=== PATIENT | female | born 1985 | race Asian ===

== ENCOUNTER 2018-07-27 11:14 | Inpatient (IN) | payer SELFPAY ==
[2018-07-22 13:10] VITALS: BP 134/86; PULSE 76; RESP 16; TEMP 37.3; O2SAT 97; BMI 23.3
[2018-07-22 13:47] LABS: Hemoglobin 13.2 g/dl (12.0-15.0); Mean Corp Hgb Conc 33.8 g/gl (32-36); Mean Corpuscular Hgb 31.2 pg (27.0-32.0); Mean Corpuscular Volume 92.2 fL (81-99); Mean Platelet Vol. 9.4 fl (6.2-12.0); Platelet Count 278 K/mm3 (150-450); RBC Distribution Width CV 11.7 % (11.6-14.6); Red Blood Count 4.23 M/mm3 (4.2-5.4); White Blood Count 6.7 K/mm3 (4.4-11.0)
[2018-07-22 13:48] LABS: Scan Indicated on CBC? Y/N NO
[2018-07-27] VITALS (12 sets, daily range): BP systolic 90–134; BP diastolic 53–86; PULSE 46–76; RESP 14–18; TEMP 36.6–37; O2SAT 96–100; BMI 23.3; BMI 23.5
[2018-07-27 11:41] LABS: Internal QC Validated? YES +Cl - CLEAR BKGD
[2018-07-27 11:45] LABS: Pregnancy, Urine Negative Negative
--- NOTE | 2018-07-27 13:00 | CYST_PTH ---
PATIENT: EULALIA DALE LOC: [facility] U#:[id number] AGE/SX: 33/F ROOM: WA322 RE07/27/[address]: Dr. Cindy Doshi MD : 1985 BED: 1 DIS: 07/28/2018 SPEC #: [id number] RECD: 07/28/18 09:24 STATUS: ALDEN REJimena #: [id number] EMILY: 07/27/18 13:[address]: Cindy Doshi DEPT: SURGICAL PATHOLOGY RECD BY: Wisam Carbone ENTERED: 07/28/18 10:08 SP TYPE: Cyst OTHR DR: Karen Primary Care Phys Tissues: A - CYST B - Fibrous tissue Procedures: Surgery Specimen Level IV Surgery Specimen Level V HEADER OPERATION: Laparotomy, myomectomy, left ovarian cystectomy PRE-OP DIAGNOSIS: Fibroid, complex ovarian cyst TISSUE SUBMITTED: A ? Dermoid cyst, left ovary, B - Fibroid MICROSCOPIC DIAGNOSIS A. Left ovary, oophorectomy: Mature cystic teratoma (dermoid cyst). B. Fibroid, excision: Leiomyoma. AM:drake 07/29/18 MICROSCOPIC DESCRIPTION Slides are reviewed. GROSS DESCRIPTION A - Received in fixative is one container labeled with the patient's name and designated left ovary. The specimen consists of a kumar-spivey cystic ovary measuring 5.6 x 4 x 3 cm. Serial sections reveal granular cut surfaces in which there are hair, sebum-like material and focal gritty tissue. Microfilm Machine Operator sections are submitted in four cassettes. B - Received in fixative is one container labeled with the patient's name and designated fibroid. The specimen consists of firm, rubbery soft tissue that is white-kumar in color measuring 7.5 x 7 x 5.5 cm and weighing 151 gm. Sections reveal homogenous cut surfaces without areas of cyst formation, necrosis or softening. Microfilm Machine Operator sections are submitted in four cassettes. / AM:drake 07/28/18 TC:1 CPT: 12954, 84578
[2018-07-27] MEDS: Vasopressin 20 UNITS/ML Vial (14:25)
--- NOTE | 2018-07-27 15:22 | PCM.OPRPT ---
Problem List (1) Uterine fibroid Status: Acute Qualifiers: Comment: declines hysterectomy, plan laparotomy and myomectomy (2) Ovarian cyst Status: Acute Qualifiers: Comment: plan ovarian cystectomy Report of Operation Date of Procedure: 07/27/18 Pre-Operative Diagnosis: uterine fibroids left ovarian complex cyst Post-Operative Diagnosis: Uterine fibroid and left ovarian dermoid cyst Surgery/Procedure Performed:: Laparotomy left ovarian cystectomy myomectomy Description of Surgical Findings:: Left ovarian dermoid cyst large fundal fibroid java security architect: Misti Chen Type of Anesthesia:: General Special Medications: Cefoxitin Interceed Specimen's removed: Fibroid and dermoid cyst Drains: Funez Estimated Blood Loss (mL): 100 cc Fluids Replaced: Crystalloid Description of Procedure: Patient was placed under general anesthesia was prepped and draped in the normal sterile fashion in the dorsal supine position. Midline incision was made through the previous vertical skin incision. Incision was carried down to the layer of the fascia and the rectus bellies dissected off sharply and bluntly bilaterally. Peritoneum entered digitally incision stretched laterally. Ovary and uterus were elevated and the left ovary was noted to contain a dermoid cyst which an ovarian cystectomy was performed removing the cyst with rupture of contents noted containing hair and sebaceous material. The remaining ovary was noted to be within normal limits and hemostatic. The right ovary was noted to be within normal limits. Small amount of omental to a very scar tissue was taken down with the Bovie. The uterus was then visualized and dilute vasopressin was injected across the top of the fibroid. A right to left uterine incision was made across the posterior fundal portion of the uterus and the fibroid was dissected out without difficulty. It did penetrate the right endometrium which was reapproximated with 3-0 Vicryl in multiple layers to reapproximate the endometrium myometrium in several layers. The serosa was then closed with a baseball stitch of 2-0 Vicryl. Hemostasis was noted and a piece of Interceed was placed over the area. Uterus was returned to the abdomen and excellent hemostasis was noted. Peritoneum was closed with 3 oh and fascia closed with #1 start effects. Subcutaneous tissue was reapproximated with 4-0 Monocryl after excising the old skin scar. 4-0 Monocryl was used to close subcuticular and Steri-Strips and Mepilex were applied. Grafts/Implants Used: None - Complications None - Admit VTE Documentation VTE Present on Admission: No VTE Mechan Device Prophylaxis: SCD's
[2018-07-27] MEDS: Lactated Ringers 1,000 ML 125 ML IV (18:52)
[2018-07-27] MEDS: Ketorolac 30 MG/ML Syringe IV (20:33)
[2018-07-28 03:00] VITALS: BP 115/65; PULSE 72; RESP 16; TEMP 36.4; O2SAT 99
[2018-07-28] MEDS: Ketorolac 30 MG/ML Syringe IV (03:05)
[2018-07-28 06:05] LABS: Hematocrit 34.9 % (37-47); Hemoglobin 11.7 g/dl (12.0-15.0); Mean Corp Hgb Conc 33.5 g/gl (32-36); Mean Corpuscular Hgb 31.3 pg (27.0-32.0); Mean Corpuscular Volume 93.3 fL (81-99); Mean Platelet Vol. 9.6 fl (6.2-12.0); Platelet Count 258 K/mm3 (150-450); RBC Distribution Width CV 11.7 % (11.6-14.6); RBC Distribution Width SD 38.8 fl (35.1-43.9); Red Blood Count 3.74 M/mm3 (4.2-5.4); White Blood Count 17.4 K/mm3 (4.4-11.0)
[2018-07-28 06:17] LABS: Scan Indicated on CBC? Y/N NO
[2018-07-28] MEDS: oxyCODONE 5 MG Tablet PO (06:24)
[2018-07-28 07:49] VITALS: BP 102/57; PULSE 76; RESP 16; TEMP 37.1; O2SAT 97
[2018-07-28 07:52] VITALS: O2SAT 95
[2018-07-28] MEDS: Enoxaparin 40 MG/0.4 ML Syringe SC (07:57)
[2018-07-28] MEDS: Ketorolac 10 MG Tablet PO ×2 (10:46→15:18)
--- NOTE | 2018-07-28 11:13 | CASEMGMT ---
Social Work Note SW spoke with Ashley with [facility] and Ashley states that Ro in [facility] saw pt and yesterday in regards to self-pay status and provided HCAP application to pt. Pt to fill out HCAP application and provide to [facility]. Ashley Bowie CHEMICAL TESTER, HEADHUNTER
--- NOTE | 2018-07-28 13:56 | CASEMGMT ---
RN CM assessment completed. See Link. DC PLAN: Home. -[facility]. [facility]. is able to provide transportation for f/u visit to surgeon. Troy MONSONN RN ACM
[2018-07-28 15:08] VITALS: BP 108/57; PULSE 79; RESP 16; TEMP 37.1; O2SAT 97
--- NOTE | 2018-07-28 18:24 | PCM.DC.AHY ---
Discharge Diet: No Restrictions Discharge Activity: Return to Normal Activity, May Not Drive - while taking narcotic pain medications. May resume sexual activity in: 6-8 weeks Call your doctor if your incision/area has: Continuous Slow Oozing, Sudden Increased Bleeding, Increased Pain/ Swelling, Increased Redness, Foul Smelling Discharge Call your doctor if you observe: Fever of 101 or Higher Allergies/Adverse Reactions: Allergies No Known Allergies Allergy (Verified 06/17/18 08:55) Medications to take at Discharge No Known/Unobtainable [No Known Home Medications] 03/25/15 Primary Care Physician: Care Physician,No Primary [Primary Care Provider] - Test Results: Test results from this visit will be discussed in further detail at your follow-up appointment, if applicable. Please Follow Up With: Cindy Doshi MD - [phone] When: in 2 weeks
== END 2018-07-28 18:25 | disposition home or self-care (01) | DRG 743 ==
LOC: ACINP 11:16 → MS3 12:01
PROVIDERS: Admitting Provider Obstetrics & Gynecology; Visit Provider Obstetrics & Gynecology
PROC: 0UB90ZZ Excision of Uterus, Open Approach (ICD-10-PCS; CPT 49000; principal; 2018-07-27 12:45)
DX: D25.9 Leiomyoma of uterus, unspecified (principal); D27.1 Benign neoplasm of left ovary
CPT/HCPCS: 36415; 81025; 85027; 86850; 86900; 88304; 88305; 88307; J7120; J2405

== ENCOUNTER 2022-03-01 20:45 | Emergency (ER) | payer OTHER, SELFPAY ==
[2022-03-01 20:47] VITALS: BP 117/101; PULSE 80; RESP 16; TEMP 36.3; O2SAT 99; BMI 23.0
--- NOTE | 2022-03-01 21:27 | CT_ITS ---
EXAM: CT ABDOMEN AND PELVIS WITHOUT INTRAVENOUS CONTRAST CLINICAL INDICATION: suprapubic pain TECHNIQUE: Helically acquired images were obtained of the abdomen and pelvis without intravenous contrast. This CT exam was performed using one or more of the following dose reduction techniques: automated exposure control, adjustment of the mA and/or kV according to patient size, and/or use of iterative reconstruction technique. This report was created using smartclip report generation technology. RADIATION DOSAGE (If Required by State): CTDIvol = (7.29) mGy, DLP = (357.14) mGycm. COMPARISON: None. FINDINGS: LOWER THORAX: Unremarkable. Lung bases are clear. No cardiomegaly. No significant pericardial effusion. ABDOMEN: LIVER: Unremarkable. Homogeneous. GALLBLADDER AND BILE DUCTS: Unremarkable. No calcified gallstones. No gallbladder distention or wall edema. No intra- or extrahepatic biliary ductal dilation. PANCREAS: Unremarkable. No focal cystic mass. SPLEEN: Unremarkable. Normal size without focal cystic or solid mass. ADRENALS: Unremarkable. No nodules. KIDNEYS AND URETERS: Unremarkable. Normal renal size and position. No hydronephrosis. STOMACH AND BOWEL: Unremarkable. No stomach or bowel distention. No focal inflammatory change. PELVIS: APPENDIX: Normal appendix. BLADDER: Unremarkable. REPRODUCTIVE: The uterus is enlarged measuring 13 x 6 x 9 cm. ABDOMEN and PELVIS: INTRAPERITONEAL SPACE: Unremarkable. No ascites or other fluid collection. No free air. BONES/JOINTS: Unremarkable. No suspicious lytic or blastic abnormality. SOFT TISSUES: Unremarkable. No discrete abdominal or pelvic wall hernia. VASCULATURE: Unremarkable. Abdominal aorta is non-dilated. LYMPH NODES: Unremarkable. No enlarged lymph nodes. CT/Abdomen/Pelvis without Cont IMPRESSION: 1. The uterus is enlarged measuring 13 x 6 x 9 cm. 2. No acute intra-abdominal abnormality. Electronically Signed: Ivan Degroot MD at 22:21 EDT ,
[2022-03-01 21:36] LABS: Bacteria 0 SEEN /hpf (None Seen); Mucous, Urine 0 SEEN /hpf (<or=2+); Red Blood Cells-Urine 0 SEEN /hpf (0-5); Squamous Epithelial Cells - UA 0 SEEN /hpf (5-10); White Blood Cells 0 SEEN /hpf (0-5)
[2022-03-01 21:37] LABS: Absolute Lymphocyte Count 1.98 X10^3/uL (0.83-4.51); Absolute Neutrophil Count 5.4 X10^3/uL (2.0-7.7); Basophil# 0.04 X10^3/uL; Basophil% 0.5 % (0-1); Eosinophil# 0.13 X10^3/uL; Eosinophils% 1.6 % (0-5); Hematocrit 37.9 % (37-47); Hemoglobin 12.6 g/dL (12.0-15.0); Lymphocyte # 1.98 X10^3/ul (0.83-4.51); Lymphocyte % 24.3 % (19-41); Mean Corp Hgb Conc 33.2 g/dL (32-36); Mean Corpuscular Hgb 30.8 pg (27.0-32.0); Mean Corpuscular Volume 92.7 fL (81-99); Mean Platelet Vol. 9.3 fl (6.2-12.0); Monocyte# 0.57 X10^3/uL; NRBC Flagged by Analyzer 0 % (0-5); Neutrophil % 66.2 % (47-70); Platelet Count 302 K/mm3 (150-450); RBC Distribution Width CV 11.9 % (11.6-14.6); RBC Distribution Width SD 40.6 fl (35.1-43.9); Red Blood Count 4.09 M/mm3 (4.2-5.4); White Blood Count 8.2 K/mm3 (4.4-11.0)
[2022-03-01 21:38] LABS: Color, Urine Yellow (Yellow); Glucose, Dipstick Normal (Normal); Ketone-Dipstick Negative (Negative); Leukocyte Esterase-Dipstick Negative /ul (Negative); Nitrite-Dipstick Negative (Negative); Occult Blood-Urine Negative /ul (Negative); Protein-Dipstick Negative (Negative); Urine Bilirubin Dipstick Negative (Negative); Urine Clarity Clear (Clear); Urine Urobilinogen Normal (Normal)
[2022-03-01 21:48] LABS: Internal QC Validated? YES +Cl - CLEAR BKGD; Pregnancy, Serum, hCG Quali. NEGATIVE Negative
[2022-03-01 21:49] LABS: Anion Gap 3 (5-15); BUN 15 mg/dL (7-18); BUN/Creat Ratio 24.2 RATIO (10-20); Calcium,Total 8.6 mg/dL (8.5-10.1); Chloride 109 mmol/L (98-107); Creatinine, Serum 0.62 mg/dL (0.55-1.02); EST Glomerular Filtration Rate 116 mL/min (>60); Est Glom Filt Rate - Afr Amer 140 mL/min (>60); Estimated Creatinine Clearance 104.76 ml/min; Glucose 93 mg/dL (74-106); Potassium 3.9 mmol/L (3.5-5.1); Sodium Level 139 mmol/L (136-145)
--- NOTE | 2022-03-01 21:57 | EDS_ITS ---
HPI <Dr. Radha Lazaro MD - Last Filed: 03/01/22 23:48> History of Present Illness Chief Complaint: Abd Pain <ZACH HARTMANN - Last Filed: 03/01/22 23:35> History of Present Illness Informant: patient Onset/Context/Timing Onset: Today (at 1900) Current Severity: 5/10 Maximum Severity: 8/10 Worsened by: movement Narrative Narrative: Patient presents secondary to lower abdominal pain that began tonight at 1900. Patient has language barrier but describes the pain as pain you would have with your period. Patient states she felt fine earlier today. Patient states she has had normal intake today as well has normal bowel movements and urination. Patient denies radiation of pain. Patient states pain is constant and worse with movement, but denies any recent strain or other injury. Patient did not take any medications [id number]. COUNTS INCLUDE 234 BEDS AT THE [facility] <Dr. Radha Lazaro MD - Last Filed: 03/01/22 23:48> COUNTS INCLUDE 234 BEDS AT THE [facility] Medical History (Updated 03/01/22 @ 23:29 by ZACH HARTMANN) [place] Home Medications NK 08/12/18 [History Last Taken Unknown] Allergy/AdvReac Type Severity Reaction Status Date / Time No Known Allergies Allergy Verified 03/01/22 20:50 Family History Mother Myocardial infarction Surgical History Delivery with history of History of laparotomy Social History Smoking Status: Never smoker alcohol intake: never substance use type: does not use caffeine: Yes Type: coffee and tea Number of servings: 2 what type of physical activity do you participate in: none seatbelt use: always do you feel safe at home: Yes additional social history: Reuben Stewart (Nitin Charles) <ZACH HARTMANN - Last Filed: 03/01/22 23:35> ROS ED Constitutional Constitutional ED: Denies chills, fever(s) or sweats ENT ENT ED: Denies sore throat Cardiovascular Cardiovascular: Denies chest pain Respiratory/Chest Respiratory/Chest: Denies cough or dyspnea Gastrointestinal Gastrointestinal: Reports abdominal pain; Denies constipation, diarrhea, nausea or vomiting Genitourinary Genitourinary ED: Reports LMP (females 10-50) Details: Comment: (02/18/22); Denies dysuria or hematuria Musculoskeletal Musculoskeletal: Denies myalgias Integumentary Denies rash Neurologic Neurologic: Denies headache(s) or weakness Psychiatric Psychiatric: Denies depression EXAM <Dr. Radha Lazaro MD - Last Filed: 03/01/22 23:48> Physical Exam Const Vital Signs: 03/01/22 20:47 Temperature 97.3 F L Temperature Source Temporal Pulse Rate 80 Respiratory Rate 16 Blood Pressure 117/101 H Blood Pressure Mean 106 Pulse Ox 99 Oxygen Delivery Method Room Air <ZACH HARTMANN - Last Filed: 03/01/22 23:35> Physical Exam Const Vital Signs: 03/01/22 20:47 Temperature 97.3 F L Temperature Source Temporal Pulse Rate 80 Respiratory Rate 16 Blood Pressure 117/101 H Blood Pressure Mean 106 Pulse Ox 99 Oxygen Delivery Method Room Air Positive well nourished and well developed General Appearance ED: well developed HEENT Reports moist mucous membranes Negative for trauma or tenderness Eyes PERRL and EOMs intact bilaterally Neck supple Chest Wall inspection of chest normal and palpation of chest normal Resp normal respiratory effort and clear to auscultation bilaterally Cardio regular rate, regular rhythm and no murmurs GI normal to inspection, nondistended, normoactive bowel sounds Palpation: soft Narrative: Suprapubic tenderness. Back/Spine no CVA tenderness Extremity normal to inspection General Extremety ED: Negative for edema General Extremity: Negative for edema Neuro oriented x3 and CN's II-XII intact bilaterally Sensorium / Orientation: alert Psych mental status grossly normal Skin no rashes or lesions noted MDM <Dr. Radha Lazaro MD - Last Filed: 03/01/22 23:48> [facility] Lab Data Labs: Laboratory Results - last 24 hr 03/01/22 03/01/22 03/01/22 20:59 20:59 20:59 WBC 8.2 RBC 4.09 L Hgb 12.6 Hct 37.9 MCV 92.7 MCH 30.8 MCHC 33.2 RDW Std Deviation 40.6 RDW Coeff of Erin 11.9 Plt Count 302 MPV 9.3 Immature Gran % (Auto) 0.400 Neut % (Auto) 66.2 Lymph % (Auto) 24.3 [place] % (Auto) 7.0 Eos % (Auto) 1.6 Baso % (Auto) 0.5 Absolute Neuts (auto) 5.4 Absolute Lymphs (auto) 1.98 Nucleated RBC % 0 Sodium 139 Potassium 3.9 Chloride 109 H Carbon Dioxide 27.0 Anion Gap 3 L BUN 15 Creatinine 0.62 Estim Creat Clear Calc 104.76 Est GFR (MDRD) Af Amer 140 Est GFR (MDRD) Non-Af 116 BUN/Creatinine Ratio 24.2 H Glucose 93 Calcium 8.6 Serum , Qual NEGATIVE Urine Color Urine Clarity Urine pH Ur Specific [place] Urine Protein Urine Glucose (UA) Urine Ketones Urine Occult Blood Urine Nitrite Urine Bilirubin Urine Urobilinogen Ur Leukocyte Esterase Urine RBC Urine WBC Ur Squamous Epith Cells Urine Bacteria Urine Mucus 03/01/22 21:13 WBC RBC Hgb Hct MCV MCH MCHC RDW Std Deviation RDW Coeff of Erin Plt Count MPV Immature Gran % (Auto) Neut % (Auto) Lymph % (Auto) [place] % (Auto) Eos % (Auto) Baso % (Auto) Absolute Neuts (auto) Absolute Lymphs (auto) Nucleated RBC % Sodium Potassium Chloride Carbon Dioxide Anion Gap BUN Creatinine Estim Creat Clear Calc Est GFR (MDRD) Af Amer Est GFR (MDRD) Non-Af BUN/Creatinine Ratio Glucose Calcium Serum , Qual Urine Color Yellow Urine Clarity Clear Urine pH 7.0 Ur Specific [place] 1.010 Urine Protein Negative Urine Glucose (UA) Normal Urine Ketones Negative Urine Occult Blood Negative Urine Nitrite Negative Urine Bilirubin Negative Urine Urobilinogen Normal Ur Leukocyte Esterase Negative Urine RBC 0 SEEN Urine WBC 0 SEEN Ur Squamous Epith Cells 0 SEEN Urine Bacteria 0 SEEN Urine Mucus 0 SEEN Radiography Diagnostic Testing: Clinical Impression(s) from Imaging Studies Abdomen/Pelvis CT 03/01/22 21:27 IMPRESSION: 1. The uterus is enlarged measuring 13 x 6 x 9 cm. 2. No acute intra-abdominal abnormality. Electronically Signed: Ivan Degroot MD at 22:21 EDT , Treatment and Re-Evaluation Narrative: Patient seen and evaluated with WEAVING INSPECTOR student. I personally interviewed and examined the patient. I was involved in all aspects of patient's orders, interpretation of results, and treatment. Patient presents with 1 day history of lower abdominal pain. She points to the suprapubic area. She states pain is worse with movement. She denies nausea or vomiting. She denies urinary symptoms. No fever or chills. She is a history of ovarian cyst as well as teratoma. She denies that this pain feels similar. Patient sitting upright in bed no acute distress. She is nontoxic-appearing. Head and neck examination normal. Heart is regular rate and rhythm. Lung sounds are clear. Abdomen is soft with minimal tenderness in the suprapubic area. No guarding or rebound. Lab work, urinalysis, CT flank obtained. Patient declined pain medication. Work-up is unremarkable other than an enlarged uterus. No acute intra-abdominal abnormality noted. Test results discussed with patient and family at bedside. She will continue supportive care. Return instructions provided. <ZACHGLENN HARTMANN - Last Filed: 03/01/22 23:35> [facility] MDM Narrative Medical decision making narrative: CBC, BMP, serum hCG, urinalysis, and CT abdomen pelvis without contrast ordered. Patient denies need for pain medication. Lab Data Attestation: I reviewed the patient's lab results. Labs: Laboratory Results - last 24 hr 03/01/22 03/01/22 03/01/22 20:59 20:59 20:59 WBC 8.2 RBC 4.09 L Hgb 12.6 Hct 37.9 MCV 92.7 MCH 30.8 MCHC 33.2 RDW Std Deviation 40.6 RDW Coeff of Erin 11.9 Plt Count 302 MPV 9.3 Immature Gran % (Auto) 0.400 Neut % (Auto) 66.2 Lymph % (Auto) 24.3 [place] % (Auto) 7.0 Eos % (Auto) 1.6 Baso % (Auto) 0.5 Absolute Neuts (auto) 5.4 Absolute Lymphs (auto) 1.98 Nucleated RBC % 0 Sodium 139 Potassium 3.9 Chloride 109 H Carbon Dioxide 27.0 Anion Gap 3 L BUN 15 Creatinine 0.62 Estim Creat Clear Calc 104.76 Est GFR (MDRD) Af Amer 140 Est GFR (MDRD) Non-Af 116 BUN/Creatinine Ratio 24.2 H Glucose 93 Calcium 8.6 Serum , Qual NEGATIVE Urine Color Urine Clarity Urine pH Ur Specific [place] Urine Protein Urine Glucose (UA) Urine Ketones Urine Occult Blood Urine Nitrite Urine Bilirubin Urine Urobilinogen Ur Leukocyte Esterase Urine RBC Urine WBC Ur Squamous Epith Cells Urine Bacteria Urine Mucus 03/01/22 21:13 WBC RBC Hgb Hct MCV MCH MCHC RDW Std Deviation RDW Coeff of [place] Plt Count MPV Immature Gran % (Auto) Neut % (Auto) Lymph % (Auto) [place] % (Auto) Eos % (Auto) Baso % (Auto) Absolute Neuts (auto) Absolute Lymphs (auto) Nucleated RBC % Sodium Potassium Chloride Carbon Dioxide Anion Gap BUN Creatinine Estim Creat Clear Calc Est GFR (MDRD) Af Amer Est GFR (MDRD) Non-Af BUN/Creatinine Ratio Glucose Calcium Serum , Qual Urine Color Yellow Urine Clarity Clear Urine pH 7.0 Ur Specific [place] 1.010 Urine Protein Negative Urine Glucose (UA) Normal Urine Ketones Negative Urine Occult Blood Negative Urine Nitrite Negative Urine Bilirubin Negative Urine Urobilinogen Normal Ur Leukocyte Esterase Negative Urine RBC 0 SEEN Urine WBC 0 SEEN Ur Squamous Epith Cells 0 SEEN Urine Bacteria 0 SEEN Urine Mucus 0 SEEN Radiography Diagnostic Testing: Clinical Impression(s) from Imaging Studies Abdomen/Pelvis CT 03/01/22 21:27 IMPRESSION: 1. The uterus is enlarged measuring 13 x 6 x 9 cm. 2. No acute intra-abdominal abnormality. Electronically Signed: Ivan Degroot MD at 22:21 EDT , Treatment and Re-Evaluation Narrative: Patient blood work and urinalysis are unremarkable. White blood cell count at 8.2. BMP shows electrolytes normal, kidney function normal. Urinalysis negative. Results reviewed with patient and at bedside. Patient agreeable to discharge home with Tylenol or Motrin for pain, and follow-up with will call order clerk for no doc. Return instructions given and patient and also verbalized understanding of this. Discharge Plan Triage Chief Complaint: Abd Pain ED Provider: Radha Lazaro Dx/Rx/DC Orders Clinical Impression: Abdominal pain of unknown etiology Instructions: ED Abdominal Pain Unkn Cause Fem Prescriptions: No Action NK RF: 0 Primary Care Provider: Care Physician,No Primary Referrals: Schinner,Franco E, MD [STAFF PHYSICIAN] - 1 Week if not improving Care Physician,No Primary [Primary Care Provider] - Disposition Disposition: Home, Self Care Discharge Date/Time: 03/01/22 23:42
== END 2022-03-01 23:42 | disposition home or self-care (01) ==
PROVIDERS: Emergency Provider Emergency Medicine; Visit Provider Emergency Medicine
DX: R10.9 Unspecified abdominal pain (principal)
CPT/HCPCS: 74176; 80048; 81001; 84703; 85025; 99283; A4216

== ENCOUNTER → 2022-10-14 | Outpatient (CLI) | payer MEDICAID, SELFPAY ==
[2022-10-18 11:07] LABS: Chlamydia By Nucleic Acid AMP Negative (Negative)
[2022-10-18 13:19] LABS: Gonococcus By Nucleic Acid AMP Negative (Negative)
[2022-10-23 11:29] LABS: HPV APTIMA, High Risk Negative (Negative)
== END | disposition home or self-care (01) ==
LOC: LABSPEC 13:54
PROVIDERS: Visit Provider Nurse Practitioner Women's Health
DX: Z11.3 Encounter for screening for infections with a predominantly sexual mode of transmission (principal)
CPT/HCPCS: 87491; 87591; 87624; 88175; G0145

== ENCOUNTER → 2023-03-15 | Outpatient (CLI) | payer MEDICAID, SELFPAY ==
[2023-03-15 14:56] LABS: Absolute Lymphocyte Count 1.77 X10^3/uL (0.83-4.51); Absolute Neutrophil Count 7.7 X10^3/uL (2.0-7.7); Basophil# 0.03 X10^3/uL; Basophil% 0.3 % (0-1); Eosinophil# 0.13 X10^3/uL; Eosinophils% 1.2 % (0-5); Hematocrit 38.3 % (37-47); Hemoglobin 12.9 g/dL (12.0-15.0); Lymphocyte # 1.77 X10^3/ul (0.83-4.51); Mean Corp Hgb Conc 33.7 g/dL (32-36); Mean Corpuscular Hgb 30.9 pg (27.0-32.0); Mean Corpuscular Volume 91.8 fL (81-99); Mean Platelet Vol. 8.9 fl (6.2-12.0); Monocyte# 0.78 X10^3/uL; Monocyte% 7.5 % (0-10); NRBC Flagged by Analyzer 0 % (0-5); Neutrophil # 7.67 X10^3/uL (2.7-7.7); Neutrophil % 73.7 % (47-70); Platelet Count 297 K/mm3 (150-450); RBC Distribution Width CV 12.1 % (11.6-14.6); RBC Distribution Width SD 40.8 fl (35.1-43.9); Red Blood Count 4.17 M/mm3 (4.2-5.4); White Blood Count 10.4 K/mm3 (4.4-11.0)
[2023-03-15 15:41] LABS: NATERA MAILED SPECIMEN
[2023-03-15 16:15] LABS: HIV - WCH Non-Reactive (Nonreactive); Hepatitis B Surface Antigen Non-Reactive (Nonreactive); Hepatitis C Antibody Non-Reactive (Nonreactive); Rubella IgG Reactive (Nonreactive); Syphilis Antibodies Non-reactive
[2023-03-18 05:07] LABS: Chlamydia By Nucleic Acid AMP Negative (Negative); Gonococcus By Nucleic Acid AMP Negative (Negative)
== END | disposition home or self-care (01) ==
LOC: PAVLAB 14:25
PROVIDERS: Referring Provider Obstetrics & Gynecology; Visit Provider Obstetrics & Gynecology
DX: Z34.90 Encounter for supervision of normal pregnancy, unspecified, unspecified trimester (principal)
CPT/HCPCS: 36415; 85025; 86703; 86762; 86780; 86803; 86850; 86900; 86901; 87077; 87086; 87088; 87186; 87340; 87491; 87591

== ENCOUNTER → 2023-07-23 | Outpatient (CLI) | payer MEDICAID, SELFPAY ==
[2023-07-23 10:01] LABS: Absolute Lymphocyte Count 1.18 X10^3/uL (0.83-4.51); Absolute Neutrophil Count 7.6 X10^3/uL (2.0-7.7); Basophil# 0.03 X10^3/uL; Basophil% 0.3 % (0-1); Eosinophil# 0.09 X10^3/uL; Hematocrit 35.5 % (37-47); Hemoglobin 11.6 g/dL (12.0-15.0); Lymphocyte # 1.18 X10^3/ul (0.83-4.51); Lymphocyte % 12.5 % (19-41); Mean Corp Hgb Conc 32.7 g/dL (32-36); Mean Corpuscular Hgb 30.8 pg (27.0-32.0); Mean Corpuscular Volume 94.2 fL (81-99); Mean Platelet Vol. 9.3 fl (6.2-12.0); Monocyte# 0.48 X10^3/uL; Monocyte% 5.1 % (0-10); NRBC Flagged by Analyzer 0 % (0-5); Neutrophil # 7.63 X10^3/uL (2.7-7.7); Neutrophil % 80.6 % (47-70); Platelet Count 276 K/mm3 (150-450); RBC Distribution Width CV 12.4 % (11.6-14.6); RBC Distribution Width SD 43.2 fl (35.1-43.9); Red Blood Count 3.77 M/mm3 (4.2-5.4); White Blood Count 9.5 K/mm3 (4.4-11.0)
[2023-07-23 10:12] LABS: Glucose Challenge Gest 1H 50g 158 mg/dL (70-140)
[2023-07-23 11:19] LABS: HIV - WCH Non-Reactive (Nonreactive); Syphilis Antibodies Non-reactive
== END | disposition home or self-care (01) ==
LOC: PAVLAB 09:01
PROVIDERS: Referring Provider Obstetrics & Gynecology; Visit Provider Obstetrics & Gynecology
DX: O09.90 Supervision of high risk pregnancy, unspecified, unspecified trimester (principal); Z13.1 Encounter for screening for diabetes mellitus; Z3A.00 Weeks of gestation of pregnancy not specified
CPT/HCPCS: 36415; 82950; 85025; 86703; 86780

== ENCOUNTER → 2023-08-05 | Outpatient (CLI) | payer MEDICAID, SELFPAY ==
[2023-08-05 10:28] LABS: Glucose GTT-Gestation. Fasting 69 mg/dL (<105)
[2023-08-05 11:40] LABS: Glucose GTT-Gestational 1 Hr 211 mg/dL (<190)
[2023-08-05 12:44] LABS: Glucose GTT-Gestational 2 Hr 221 mg/dL (<165)
[2023-08-05 13:26] LABS: Glucose GTT-Gestational 3 Hr 148 L (<145)
== END | disposition home or self-care (01) ==
LOC: LAB 09:44
PROVIDERS: Referring Provider Advanced Practice Midwife; Visit Provider Advanced Practice Midwife
DX: O99.810 Abnormal glucose complicating pregnancy (principal); Z3A.00 Weeks of gestation of pregnancy not specified
CPT/HCPCS: 36415; 82951; 82952

== ENCOUNTER → 2023-09-16 | Outpatient (CLI) | payer MEDICAID, SELFPAY ==
--- NOTE | 2023-09-16 14:15 | US_ITS ---
STUDY: SECOND AND THIRD TRIMESTER OBSTETRICAL ULTRASOUND REASON FOR EXAM: Female, 38 years old AMA, GDM TECHNIQUE: Transabdominal PRIOR ULTRASOUND: None. FINDINGS: There is a single intrauterine fetus. The fetus is in a cephalic presentation. There is demonstrated cardiac activity with a heart rate of 155 bpm. There is a normal amniotic fluid volume. The largest amniotic fluid pocket measures 3.7 cm. The amniotic fluid index (MARTIN) is 12 cm. The placenta is left lateral in location and is not low lying. There are Grade 2 placental changes. The cervix measures 3.9 cm in length. The adnexal regions are not visualized. BPD: 8.8 cm = 35 weeks, 3 day(s) HC: 32.2 cm = 36 weeks, 3 day(s) AC: 32 cm = 35 weeks, 4 day(s) FL: 6.8 cm = 35 weeks, 0 day(s) EGA by ultrasound: 35 weeks 6 day(s) CHERYL by ultrasound: 10/15/2023 Estimated weight: 2699 grams Weight percentile: 15% US/OB Limited With Biometrics IMPRESSION: Living intrauterine with estimated gestational age of 35 weeks and 6 days. Electronically Signed: Won Suarez MD at 19:15 EDT ,
== END | disposition home or self-care (01) ==
LOC: US 14:14
PROVIDERS: Referring Provider Obstetrics & Gynecology; Visit Provider Obstetrics & Gynecology
DX: O09.529 Supervision of elderly multigravida, unspecified trimester (principal); O24.419 Gestational diabetes mellitus in pregnancy, unspecified control; Z3A.00 Weeks of gestation of pregnancy not specified
CPT/HCPCS: 76816

== ENCOUNTER 2023-09-24 22:41 | Inpatient (IN) | payer MEDICAID, SELFPAY ==
[2023-09-24 22:05] VITALS: BMI 26.9
[2023-09-24 22:11] VITALS: BP 115/77; PULSE 76; O2SAT 98
[2023-09-24 22:12] VITALS: TEMP 36.7; O2SAT 99
[2023-09-24] MEDS: Lactated Ringers 1,000 ML 50 ML IV (23:30)
[2023-09-25] VITALS (20 sets, daily range): BP systolic 94–115; BP diastolic 44–73; PULSE 57–82; RESP 12–18; TEMP 36.2–37.1; O2SAT 94–100
[2023-09-25 00:11] LABS: Absolute Lymphocyte Count 1.74 X10^3/uL (0.83-4.51); Absolute Neutrophil Count 6.7 X10^3/uL (2.0-7.7); Basophil# 0.03 X10^3/uL; Basophil% 0.3 % (0-1); Hematocrit 38.1 % (37-47); Hemoglobin 12.6 g/dL (12.0-15.0); Lymphocyte # 1.74 X10^3/ul (0.83-4.51); Lymphocyte % 18.3 % (19-41); Mean Corp Hgb Conc 33.1 g/dL (32-36); Mean Corpuscular Hgb 31.2 pg (27.0-32.0); Mean Corpuscular Volume 94.3 fL (81-99); Monocyte# 0.84 X10^3/uL; Monocyte% 8.8 % (0-10); NRBC Flagged by Analyzer 0 % (0-5); Neutrophil # 6.74 X10^3/uL (2.7-7.7); Neutrophil % 70.8 % (47-70); Platelet Count 290 K/mm3 (150-450); RBC Distribution Width CV 12.7 % (11.6-14.6); RBC Distribution Width SD 43.5 fl (35.1-43.9); Red Blood Count 4.04 M/mm3 (4.2-5.4); White Blood Count 9.5 K/mm3 (4.4-11.0)
[2023-09-25 00:27] LABS: Bedside Glucose 89 mg/dL (74-106)
[2023-09-25 00:45] LABS: Syphilis Antibodies Non-reactive
[2023-09-25 06:13] LABS: Bedside Glucose 72 mg/dL (74-106)
[2023-09-25] MEDS: Lactated Ringers 1,000 ML 999 ML IV (08:10)
[2023-09-25] MEDS: Acetaminophen 500 MG Tablet PO (08:39)
--- NOTE | 2023-09-25 08:52 | OB.TRI.HP_ITS ---
HPI - General General Date of Admission: 09/24/23 HPI Narrative EULALIA DALE, is a 38 y/o @ 38 weeks 5 days who presents to L&D at 10:30 last night (09/24/23) stating that she had one contraction at home and I am ready for my section for 7 am. The patient was seen in the office yesterday and recommendations were to proceed with section due to being 3 cm dilated and h/o fundal myometomy. She was put on the NST machine and was not found to be yeyo and she then declined section. She stated to me at that time that she would like to deliver on 10/01/23 for good fortune for the baby. There is a slight cultural/language barrier, but beliefs were r espected and she was given risks, benefits, and alternatives. Last night when she came in she thought it best to be monitored while her drove to [place] to berry picker her mother. Over night she had contractions that were irregular but pain level remained a 3-4/10 and she was monitored closely. Her is now here and she now consents to primary section. Maternal Data Information CHERYL Calculator Estimated Delivery Date Method Current WG Current Estimate 10/04/23 Ultrasound #1 38w 5d [facility] Medical History (Updated 09/24/23 @ 23:39 by Pauly Chatman) Gestational diabetes Teratoma Uterine fibroid Home Medications vit no.95-ferrous fumarate 28 mg-folic acid 800 mcg tablet () 1 tab PO DAILY 09/24/23 [History Last Taken Unknown] Allergy/AdvReac Type Severity Reaction Status Date / Time No Known Allergies Allergy Verified 09/24/23 22:25 Family History Mother Myocardial infarction Surgical History History of laparotomy Social History Smoking Status: Never smoker alcohol intake: never substance use type: does not use caffeine: Yes Type: coffee and tea Number of servings: 2 what type of physical activity do you participate in: none seatbelt use: always do you feel safe at home: Yes additional social history: Reuben Stewart (Nitin Charles) History 3 Elective abortions Hx Para 2 Spontaneous abortions Hx # Term Pregnancies Ectopic pregnancies Hx # Pregnancies Multiple births # of living children 2 Past Pregnancies Del. Date Name GA/Weeks Outcome Route Bth Weight Infant Gen Labor Lgth Anesthesia Del Locatn Provider FOB Unknown Negin Adameng 03/11/14 40 live - full term Unknown Den Stewart 01/28/14 40 live - full term Visit Details Expected Delivery Route/Plan LTCS Plans Covid status: [] Flu vaccine: [] Tdap vaccine: [] Rhogam: [] LARC form signed: [] Problem list reviewed and updated with the most current plan of care details and appropriate orders placed. Relevant counseling for the gestational age provided. Continue routine care and follow up unless otherwise noted in visit notes/problem list details OB Flowsheet Initial Weight: Not Recorded Date -?-?-?-?-?-?-?-?-?-?-?-?- EGA Weight BP Urine Prot -?-?-?-?-?-?-?-?-?-?-?-?- Glucose FHR FuHt Pres Dilation -?-?-?-?-?-?-?-?-?-?-?-?- Effaced St Visit Note 03/15/23 -?-?-?-?-?-?-?-?-?-?-?-?- 11w 0d 135 lb 2 oz 120/70 -?-?-?-?-?-?-?-?-?-?-?-?- 160 -?-?-?-?-?-?-?-?-?-?-?-?- SM- CRL 3.7 cm N OT cons with LMP 03/30/23 -?-?-?-?-?-?-?-?-?-?-?-?- 13w 1d 136 lb 4 oz 120/77 Nega tive -?-?-?-?-?-?-?-?-?-?-?-?- Negative 144 -?-?-?-?-?-?-?-?-?-?-?-?- JV- CRL measurin g 13 weeks. reviewed nipt with shopping investigator line. pt aware also that [facility] will call to set up ultrasound for anatomy, 04/27/23 -?-?-?-?-?-?-?-?-?-?-?-?- 17w 1d 135 lb 6 oz 122/68 Nega tive -?-?-?-?-?-?-?-?-?-?-?-?- Negative 154 -?-?-?-?-?-?-?-?-?-?-?-?- -No Vb, LOF. N o FM yet. 05/24/23 -?-?-?-?-?-?-?-?-?-?-?-?- 21w 0d 139 lb 6 oz 103/69 Nega tive -?-?-?-?-?-?-?-?-?-?-?-?- Negative 150 -?-?-?-?-?-?-?-?-?-?-?-?- - discussed TO LAC not recommended due to two laparotomoies now and multiple fibroids removed on last surgery. plan LTC using vertical scar. no vb cramping 07/02/23 -?-?-?-?-?-?-?-?-?-?-?-?- 26w 4d 143 lb 8 oz 111/63 -?-?-?-?-?-?-?-?-?-?-?-?- 150 26 -?-?-?-?-?-?-?-?-?-?-?-?- Sm- no vb lof go od fm nor egular ctx. 07/23/23 -?-?-?-?-?-?-?-?-?-?-?-?- 29w 4d 147 lb 6 oz 102/64 Nega tive -?-?-?-?-?-?-?-?-?-?-?-?- Negative 140 29 -?-?-?-?-?-?-?-?-?-?-?-?- KW- no vb/lof/ct x. good fm. notified needs to do 3 hour glucose. will schedule for next week. patient requesting to change due date for culture reasons. will discuss with SM. 08/13/23 -?-?-?-?-?-?-?-?-?-?-?-?- 32w 4d 145 lb 4 oz 105/70 Nega tive -?-?-?-?-?-?-?-?-?-?-?-?- Negative 140 31 -?-?-?-?-?-?-?-?-?-?-?-?- LC- no vb/lof/ct x. good fm. fasting under 80, pp under 105. doing well. no concerns. 08/27/23 -?-?-?-?-?-?-?-?-?-?-?-?- 34w 4d 147 lb 4 oz 114/69 Nega tive -?-?-?-?-?-?-?-?-?-?-?-?- Negative 155 34 -?-?-?-?-?-?-?-?-?-?-?-?- KW-no vb/lof/ctx . good fm. LARC done. declines flu shot today. 09/10/23 -?-?-?-?-?-?-?-?-?-?-?-?- 36w 4d 150 lb 6 oz 111/65 Nega tive -?-?-?-?-?-?-?-?-?-?-?-?- Negative 140 36 -?-?-?-?-?-?-?-?-?-?-?-?- SM- no vb lof go od fm no regular ctx SM- no vb lof good fm no reg ular ctx BS controlled 09/16/23 -?-?-?-?-?-?-?-?-?-?-?-?- 37w 3d 149 lb 2 oz 109/64 Nega tive -?-?-?-?-?-?-?-?-?-?-?-?- Negative 140 34 Cephalic -?-?-?-?-?--?-?-?-?-?-?-?- KW- no vb, lof, ctx. good fm. no concerns today. declines flu shot. Has US today at 1430 09/24/23 -?-?-?-?-?-?-?-?-?-?-?-?- 38w 4d 149 lb 2 oz 110/70 Nega tive -?-?-?-?-?-?-?-?-?-?-?-?- Negative 140 37 Cephalic 2 .5 -?-?-?-?-?-?-?-?-?-?-?-?- 70 -2 JV- discus sed early vs 39 week delivery for history of myomectomy that entered the myometrium at the fundus. She has had extensive discussions about this with Dr. Doshi in the past and feels has a good plan. denies lof, vaginal bleeding, or dec fm. JV- discussed early vs 39 we ek delivery for history of myomectomy that entered the myometrium at the fundus. She has had extensive discussions about this with Dr. Doshi in the past and feels has a good plan. denies lof, vaginal bleeding, or dec fm. today her cervix is dilated 2-3 cm and repeat section today strongly recommended. NST reactive with some uterine irritability. patient declines surgery today stating that the 4th is good fortune for the baby. Risks of uterine rupture, bleeding, and damage and discussed. labor precautions discussed. she will return wednesday for rpt exam and knows I am available all weekend if changes her mind. ROS Constitutional Constitutional: Denies change in weight, fatigue, fever(s), headache(s), poor appetite or weakness Eyes Eyes: Denies blurry vision, change in vision, seeing flashes or spots in vision ENT HEENT: Denies dizziness, headache(s), loss taste/smell or sore throat Cardiovascular Cardiovascular: Denies chest pain, dizziness, dyspnea, irregular heart rhythm, leg edema, palpitations, rapid heart rate or vomiting Respiratory/Chest Respiratory/Chest: Denies chest tightness, cough, dyspnea or breast pain Gastrointestinal Gastrointestinal: Denies abdominal pain, anorexia, constipation, cramping, diarrhea, hemorrhoids, vomiting or weight changes Genitourinary Genitourinary: Denies dysuria, flank pain, genital lesions, genital pain, urinary frequency or urinary urgency Musculoskeletal Musculoskeletal: Denies back pain, difficulty walking, joint pain, limited range of motion, muscle cramps or numbness Integumentary Integumentary: Denies lesions or unusual bruising Neurologic Neurologic: Denies abnormal movements, abnormal speech, dizziness, numbness, seizure-like activity or syncope Psychiatric Psychiatric: Denies anxiety, behavioral changes, change in appetite, change in libido, cognitive impairment, confusion, depression, difficulty concentrating, hallucinations or suicidal thoughts Endocrine Endocrinology: Denies excessive sweating, polydipsia or polyuria Hematologic/Lymphatic Hematologic/Lymphatic: Denies easy bleeding, easy bruising or lymphadenopathy Allergic/Immunologic Allergic/Immunologic: Denies itchy eyes, lip swelling, seasonal rhinorrhea, rhinitis, throat swelling, tongue swelling, eczemia, wheezing or asthma Physical Exam Const alert, oriented x3, no apparent distress and healthy appearing General Appearance: cooperative; Negative for anxious HEENT normocephalic Face and Sinus: normal facial exam Eyes EOMs intact bilaterally and no scleral icterus General Eye: normal appearance of both eyes Neck full ROM and supple Lymph Lymphatic: no lymphadenopathy noted Chest Chest: abnormal inspection of the chest Resp normal respiratory effort Effort and Inspection: able to speak in complete sentences Cardio regular rate GI soft to palpation and non-tender Inspection: gravid Palpation: soft; Negative for tender external exam normal Back/Spine no CVA tenderness Extremity normal to inspection, full ROM and no clubbing, cyanosis or edema General Extremity: Negative for calf tenderness or edema Skin Lesions: no lesions Rashes: no rashes Psych mental status grossly normal NST FHR Rate Baby A Baseline: 140 Variability:: Moderate Accelerations:: 15 x 15 Decelerations:: None NST Reactive:: Yes FHR Category:: Category I Uterine Activity:: irregular contractions q 2-5 minutes apart Assessment & Plan (1) Gestational diabetes mellitus (GDM) affecting , antepartum: COMMENT: diet controlled. (2) GBS (group B streptococcus) UTI complicating : COMMENT: Low growth:no Rx. Treat in labor (3) AMA (advanced maternal age) multigravida 35+: COMMENT: genetic counseling provided, NIPT planned (4) Supervision of high-risk : COMMENT: [id number] CHERYL 10/04/23, boyYogesh, Den Reuben (Henry) (5) : QUALIFIERS: Weeks of gestation: 38 weeks Qualified Code(s): Z3A.38 - 38 weeks gestation of COMMENT: nl anatomy, NIPT low risk. carrier declined. (6) S/P laparotomy: COMMENT: x 2. preivous after first myomectomy surgery, then had second laparotomy with myomectomy. (horizontal incision, didn't penetrate endometrium). will need primary LTCS not a candidate for . Primary LTCS scheduled for 10/01 @ 7:30 with SM PLAN: plan for primary section now ERAS protocol ordered
[2023-09-25] MEDS: Sodium Citrate/Citric Acid 30 ML UDC PO (08:53)
[2023-09-25 09:07] LABS: Bedside Glucose 69 mg/dL (74-106)
[2023-09-25] MEDS: Cefazolin 2 GM in 0.9% Normal Saline (100mL Bag) 100 ML IV (09:15)
--- NOTE | 2023-09-25 09:57 | OP.PCM_ITS ---
Assessment & Plan (1) Gestational diabetes mellitus (GDM) affecting , antepartum: COMMENT: diet controlled. (2) GBS (group B streptococcus) UTI complicating : COMMENT: Low growth:no Rx. Treat in labor (3) AMA (advanced maternal age) multigravida 35+: COMMENT: genetic counseling provided, NIPT planned (4) Supervision of high-risk : COMMENT: [id number] CHERYL 10/04/23, boy, Yogesh PC Negin, Den Reuben (Henry) (5) : QUALIFIERS: Weeks of gestation: 38 weeks Qualified Code(s): Z3A.38 - 38 weeks gestation of COMMENT: nl anatomy, NIPT low risk. carrier declined. (6) S/P laparotomy: COMMENT: x 2. preivous after first myomectomy surgery, then had second laparotomy with myomectomy. (horizontal incision, didn't penetrate endometrium). will need primary LTCS not a candidate for . Primary LTCS scheduled for 10/01 @ 7:30 with Maternal Data Information CHERYL Calculator Estimated Delivery Date Method Current WG Current Estimate 10/04/23 Ultrasound #1 38w 5d Final CHERYL: 09/25/23 Final CHERYL Source: US <20 weeks [place] Doctor Who Attended Delivery: Jazmin Hameed Details Operative Information Date of Procedure: 09/25/23 Pre-Operative Diagnosis: 38 y/o @ 38 weeks 5 days, history of fundal myomectomy, contractions Post-Operative Diagnosis: 38 y/o @ 38 weeks 5 days, history of fundal myomectomy, contractions Classification: Scheduled Procedure Type: low transverse Type of Anesthesia: Spinal Antibiotic Given: Ancef 2 grams IV x1 Estimated Blood Loss: 500cc Findings Description of Procedure: Procedure: The patient was brought to the operating room where spinal anesthesia was perfomred and found to be adequate. She was prepped and draped in the normal sterile fashion and was placed in a dorsal supine position with a leftward tilt. A vertical skin incision was made through an old incision, per request of the the patient, with a scalpel and carried through to the underlying layers. The fascia was nicked in the midline and extended laterally using Brunson scissors. The anterior aspect of the fascia was grasped with Sheryl clamps and the underlying rectus muscles dissected off using the Metzenbaum scissors. The rectus muscles were in the midline. Peritoneum was entered sharply. The uterus was identified and a bladder blade was inserted into the abdomen. Bladder flap was created off the uterus using Metzenbaum scissors. A transverse incision was made on the uterus with a scalpel and extended laterally manually. The 's head was grasped with the help of my geriatric nursing assistant and fundal pressure the was delivered through the uterine incision without difficulty. The mouth and nares were bulb suctioned. After a 30 second delay the cord was clamped and cut. The end was handed off to the awaiting yeast pumper for routine assessment. Placenta was delivered manually without difficulty. The uterus was examined at the fundus and posterior aspect and noted to be intact, then cleared of all clots and debris. Incision was closed with an 0 Vicryl suture in a running locked fashion. Second layer of 1-0 monocryl suture was used in imbricating manner to create excellent closure and hemostasis. The gutt ers were cleared of all clots and debris. The peritoneum was closed in a pursestring pattern using a 3-0 Vicryl suture. This muscle was reapproximated with a 3-0 Vicryl. The fascia was closed with an [ 0 Vicryl] suture. Subcutaneous tissue layer was closed using a plain gut suture. The skin was closed with a 4-0 Monocryl subcuticular stitch. The skin was also sealed with surgical glue. The patient tolerated the procedure well sponge lap and needle counts were correct at each tissue closure plane and the patient is now being brought to the recovery room in stable condition Presentation: Positive for Vertex Amniotic Membrane Rupture Type: Artificial Amniotic Fluid Description: Clear Placental Delivery Description: Manual Removal Placenta Disposition: [facility] Cord Vessel Description: 3 Vessels Cord Entanglement: None Infant A Gender: Male (1 minute): 9 (5 minute): 9 Delayed Cord Clamping: Yes Complications Risks of Surgery Discussed w/Patient: Bleeding, Anesthesia Risks, Infection, Need for Future C-Sections, Injury to surrounding structure(s) including bowel and bladder and Availability of other non-permanent control options Multi Select Codes Urinary/Genital Urinary/Genital CPT Codes: 26018 delivery+PP Care([facility])
--- NOTE | 2023-09-25 10:12 | PCM.DC ---
Discharge Instructions Diet Discharge Diet: No restrictions Activity Discharge Activity: May Not Drive (for 2 weeks or while taking narcotic pain medications.), May Shower and May Take a Tub Bath (in 7 days.) May resume sexual activity in: 4-6 weeks Weight Bearing Status: Full weight bearing Lifting Restrictions: 20 pounds Dressing / Incision Call your doctor if your incision/area has: Continuous Slow Oozing, Sudden Increased Bleeding, Increased Pain/ Swelling, Increased Redness and Foul Smelling Discharge Call your doctor if you observe: Fever of 101 or Higher and Using more than 1 pad per hour Suture Line Care: Avoid Pulling/Pushing and Avoid Pinching/Bending Cleanse incision/area with: Soap & Water and Keep Dressing Clean & Dry Follow Up Care Please Follow Up With: Radha Castro DO When: Call [phone] to make an appointment for an incision check in 1-2 weeks. Test Results: Test results from this visit will be discussed in further detail at your follow-up appointment, if applicable. Discharge Plan Admission Admit Date/Time: 09/24/23 22:41 Primary Reason for Your Visit: section Attending Provider: Radha Castro Primary Care Provider: Jero Physician,Karen Primary Discharge Orders/Prescriptions Prescriptions: No Action PNV cmb#95-ferrous fumarate-FA [] 28 mg iron- 800 mcg tablet 1 tab PO DAILY Referrals / Follow Up: Care Physician,Kaern Primary [Primary Care Provider] - Disposition Disposition (needs filled in before D/C Order can be placed): Home, Self Care
[2023-09-25] MEDS: Oxytocin 15 Units/NS 250ml 15 UNITS/250 ML IV.SOLN 83 UNITS IV (10:15)
[2023-09-25] MEDS: 0.9% Saline Lock 10 ML Syringe IV ×2 (11:24→18:30)
[2023-09-25] MEDS: Ketorolac 30 MG/ML Syringe IV ×2 (11:24→22:17)
[2023-09-25 12:31] LABS: Bedside Glucose 74 mg/dL (74-106)
[2023-09-25] MEDS: Lactated Ringers 1,000 ML 100 ML IV (13:48)
[2023-09-25] MEDS: Acetaminophen 500 MG Tablet 1000 MG PO ×2 (14:43→20:25)
[2023-09-25] MEDS: Ondansetron 4 MG/2 ML Vial IV (16:15)
[2023-09-25] MEDS: LACTATED RINGERS 500 ML 999 ML IV (17:07)
[2023-09-25] MEDS: proCHLORPERazine 10 MG/2 ML Vial IV (18:30)
[2023-09-25 19:10] LABS: Hematocrit 33.1 % (37-47); Hemoglobin 10.8 g/dL (12.0-15.0); Mean Corp Hgb Conc 32.6 g/dL (32-36); Mean Corpuscular Hgb 31.2 pg (27.0-32.0); Mean Corpuscular Volume 95.7 fL (81-99); Mean Platelet Vol. 9.7 fl (6.2-12.0); Platelet Count 223 K/mm3 (150-450); RBC Distribution Width CV 12.8 % (11.6-14.6); RBC Distribution Width SD 44.5 fl (35.1-43.9); Red Blood Count 3.46 M/mm3 (4.2-5.4); White Blood Count 14.6 K/mm3 (4.4-11.0)
[2023-09-25 19:28] LABS: ALB/GLOB Ratio 0.7 RATIO (0.9-2.4); AST(SGOT) 15 U/L (15-37); Alanine Aminotransfer ALT/SGPT 30 U/L (13-56); Albumin, Serum 2.2 g/dL (3.2-5.0); Alkaline Phosphatase 121 U/L (45-117); Anion Gap 1 (5-15); BUN 12 mg/dL (7-18); BUN/Creat Ratio 28.5 RATIO (10-20); Calcium,Total 8.2 mg/dL (8.5-10.1); Chloride 110 mmol/L (98-107); Creatinine, Serum 0.42 mg/dL (0.55-1.02); EST Glomerular Filtration Rate 180 mL/min (>60); Est Glom Filt Rate - Afr Amer 217 mL/min (>60); Estimated Creatinine Clearance 145.05 ml/min; Globulin 3.3 g/dL (2.2-4.2); Glucose 79 mg/dL (74-106); Potassium 3.5 mmol/L (3.5-5.1); Protein, Total 5.5 g/dL (6.4-8.2); Sodium Level 136 mmol/L (136-145)
--- NOTE | 2023-09-25 21:00 | NURSING ---
Rn called to update provider on labs ordered at 1900. Reviewed results with her, updated her on urine output from 1030-7870 was 125, feeling less nauseated, pain is 5/10 prior to receiving scheduled tylenol. states ok to leave pt's akbar catheter in for the night to monitor urine output, increase fluid hourly intake to 150ml/hr, and if in 2 hours pt's urine output meets criteria- she can have scheduled toradol.
[2023-09-25] MEDS: Lactated Ringers 1,000 ML 150 ML IV (22:17)
[2023-09-26] VITALS: BP 91/45; PULSE 60; RESP 16; TEMP 36.4
[2023-09-26] MEDS: Acetaminophen 500 MG Tablet 1000 MG PO ×4 (02:29→20:58)
[2023-09-26 03:40] VITALS: BP 93/51; PULSE 61; RESP 16; TEMP 36.5; O2SAT 98
[2023-09-26] MEDS: Lactated Ringers 1,000 ML 150 ML IV (03:58)
[2023-09-26] MEDS: Ketorolac 30 MG/ML Syringe IV ×2 (03:58→11:00)
[2023-09-26 05:38] LABS: Hematocrit 32.7 % (37-47); Hemoglobin 10.7 g/dL (12.0-15.0); Mean Corp Hgb Conc 32.7 g/dL (32-36); Mean Corpuscular Hgb 31.4 pg (27.0-32.0); Mean Corpuscular Volume 95.9 fL (81-99); Mean Platelet Vol. 9.7 fl (6.2-12.0); Platelet Count 218 K/mm3 (150-450); RBC Distribution Width CV 12.9 % (11.6-14.6); RBC Distribution Width SD 44.5 fl (35.1-43.9); Red Blood Count 3.41 M/mm3 (4.2-5.4); White Blood Count 13.7 K/mm3 (4.4-11.0)
[2023-09-26 05:50] LABS: Bedside Glucose 74 mg/dL (74-106)
[2023-09-26 08:10] VITALS: BP 96/51; PULSE 61; RESP 16; TEMP 36.5
[2023-09-26] MEDS: Senna/Docusate Sodium 1 Tablet PO (11:00)
[2023-09-26] MEDS: 0.9% Saline Lock 10 ML Syringe IV (11:00)
--- NOTE | 2023-09-26 11:22 | PN.OBGYN_ITS ---
Subjective Subjective Patient is laying in bed comfortably without complaints. She states that she slept on an off during the night. Lochia is mild and pain is minimal. Objective Data Objective Data Vital Signs: Vital Signs Temp Pulse Resp BP Pulse Ox O2 Del Method 97.7 F L 61 16 96/51 L 98 Room Air 09/26/23 08:10 09/26/23 08:10 09/26/23 08:10 09/26/23 08:10 09/26/23 03:40 09/26/23 08:10 Oxygen Delivery Method Room Air Weight: 147 lb 4.301 oz Body Mass Index (BMI) 26.9 Intake & Output: Intake and Output for Last 24 Hours 09/24/23 09/25/23 09/26/23 23:59 23:59 23:59 Intake Total 3200.83 / 3200.83 1534.5 / 1534.5 Output Total 1425 / 1600 1375 / 1375 Balance 1775.83 / 1600.83 159.5 / 159.5 Lab / Micro Data 09/26/23 05:25 09/25/23 19:08 Labs: Laboratory Results - last 24 hr 09/25/23 12:06: POC Glucose 74 09/25/23 19:08: WBC 14.6 H, RBC 3.46 L, Hgb 10.8 L, Hct 33.1 L, MCV 95.7, MCH 31.2, MCHC 32.6, RDW Std Deviation 44.5 H, RDW Coeff of Erin 12.8, Plt Count 223, MPV 9.7, Sodium 136, Potassium 3.5, Chloride 110 H, Carbon Dioxide 25.0, Anion Gap 1 L, BUN 12, Creatinine 0.42 L, Estim Creat Clear Calc 145.05, Est GFR (MDRD) Af Amer 217, Est GFR (MDRD) Non-Af 180, BUN/Creatinine Ratio 28.5 H, Glucose 79, Calcium 8.2 L, Total Bilirubin 0.30, AST 15, ALT 30, Alkaline Phosphatase 121 H, Total Protein 5.5 L, Albumin 2.2 L, Globulin 3.3, Albumin/Globulin Ratio 0.7 L 09/26/23 05:25: WBC 13.7 H, RBC 3.41 L, Hgb 10.7 L, Hct 32.7 L, MCV 95.9, MCH 31.4, MCHC 32.7, RDW Std Deviation 44.5 H, RDW Coeff of Erin 12.9, Plt Count 218, MPV 9.7 09/26/23 05:27: POC Glucose 74 ROS Constitutional Constitutional: Reports systems reviewed and no addt'l complaints, except as d ocumented Cardiovascular Cardiovascular: Denies chest pain, dizziness, dyspnea or irregular heart rhythm Respiratory/Chest Respiratory/Chest: Denies cough, pain on inspiration or shortness of breath at rest Gastrointestinal Gastrointestinal: Denies abdominal pain, nausea or vomiting Genitourinary Genitourinary: Denies burning urination Musculoskeletal Musculoskeletal: Denies muscle cramps, muscle spasms or muscle weakness Neurologic Neurologic: Denies confusion, dizziness, headache(s) or lack of coordination Psychiatric Psychiatric: Denies anxiety, behavioral changes or depression Physical Exam HEENT normocephalic Resp normal respiratory effort and normal air movement GI soft to palpation, non-tender and non-distended Rectal Exam: other Other Details: Incision is clean, dry, and intact no CVA tenderness Extremity normal to inspection General Extremity: edema bilateral (trace ) Assessment & Plan (1) Status post delivery: (2) Gestational diabetes mellitus (GDM) affecting , antepartum: COMMENT: diet controlled. PLAN: Plan s/p LTCS PPD # 1 - vertical skin incision 1. routine post care 2. breast feeding- support given 3. rh positive 4. rubella immune 5. fasting glucose normal
[2023-09-26 14:43] VITALS: BP 109/65; PULSE 60; RESP 16; TEMP 36.4
[2023-09-26] MEDS: Naproxen 500 MG Tablet PO (16:24)
[2023-09-26 19:45] VITALS: BP 114/57; PULSE 76; RESP 18; TEMP 36.4; O2SAT 98
[2023-09-27 01:00] VITALS: BP 112/58; PULSE 64; RESP 18; TEMP 36.2; O2SAT 97
[2023-09-27] MEDS: Naproxen 500 MG Tablet PO ×2 (01:02→09:03)
[2023-09-27] MEDS: Acetaminophen 500 MG Tablet 1000 MG PO ×2 (02:39→09:03)
[2023-09-27 07:45] VITALS: BP 108/60; PULSE 67; RESP 16; TEMP 36.4; O2SAT 96
--- NOTE | 2023-09-27 08:39 | PCM.PN.OB ---
Subjective Subjective pt sitting up in bed bottle feeding infant. pain well controlled with PO medications, minimal lochia. Patient doing well without complaints. Tolerating PO. Ambulating and voiding without difficulty. Denies chest pain, shortness of breath, calf pain/swelling, fevers, chills, lightheadedness. Objective Data Objective Data Vital Signs: Vital Signs Temp Pulse Resp BP Pulse Ox O2 Del Method 97.6 F L 67 16 108/60 96 Room Air 09/27/23 07:45 09/27/23 07:45 09/27/23 07:45 09/27/23 07:45 09/27/23 07:45 09/27/23 07:45 Oxygen Delivery Method Room Air Weight: 147 lb 4.301 oz Body Mass Index (BMI) 26.9 Intake & Output: Intake and Output for Last 24 Hours 09/25/23 09/26/23 09/27/23 23:59 23:59 23:59 Intake Total 3200.83 / 3200.83 1534.5 / 1534.5 Output Total 1425 / 1600 2475 / 2475 Balance 1775.83 / 1600.83 -940.5 / -940.5 Lab / Micro Data 09/26/23 05:25 09/25/23 19:08 Physical Exam HEENT normocephalic Resp normal respiratory effort and normal air movement GI soft to palpation, non-tender and non-distended no CVA tenderness Extremity normal to inspection Extremity Narrative: trace edema General Extremity: edema bilateral (trace ) Skin Skin Narrative: dressing intact, 2 small areas of drainage-marked and has not increased in size. Psych mental status grossly normal Appearance: grossly normal Assessment & Plan (1) Status post delivery: COMMENT: JV 09/25 primary c/s vertical skin incision (2) Gestational diabetes mellitus (GDM) affecting , antepartum: COMMENT: diet controlled. (3) S/P laparotomy: COMMENT: x 2. preivous after first myomectomy surgery, then had second laparotomy with myomectomy. (horizontal incision, didn't penetrate endometrium). will need primary LTCS not a candidate for . Primary LTCS scheduled for 10/01 @ 7:30 with PLAN: Plan s/p LTCS PPD # 2 1. routine post care 2. breast feeding- support given 3. rh positive 4. rubella immune 5. d/c home today
[2023-09-27] MEDS: Senna/Docusate Sodium 1 Tablet PO (09:03)
--- NOTE | 2023-10-04 17:06 | PCM.DC.SUM ---
Providers Date of Admission: 09/24/23 Date of Discharge: 09/27/23 Primary Care Physician: No Primary Care Phys Reason For Visit: PRIMARY Diagnosis Discharge Diagnosis (1) Status post delivery: Status: Acute Code(s): Z98.891 - History of uterine scar from previous surgery (2) Gestational diabetes mellitus (GDM) affecting , antepartum: Status: Resolved Code(s): O24.419 - Gestational diabetes mellitus in , unspecified control (3) S/P laparotomy: Status: Acute Code(s): Z98.890 - Other specified postprocedural states Plan s/p LTCS PPD # 2 1. routine post care 2. breast feeding- support given 3. rh positive 4. rubella immune 5. d/c home today Medications at Discharge Home Medications vit no.95-ferrous fumarate 28 mg-folic acid 800 mcg tablet () 1 tab PO DAILY 09/24/23 Hospital Course Operations section Summary of Care Provided Minutes Spent on Discharge: 15 Hospital Course: EULALIA DALE, is a 38 y/o @ 38 weeks 5 days who presents to L&D 09/24/23 with section due to being 3 cm dilated and h/o fundal myometomy. uncomplicated course. Physical Exam HEENT normocephalic Resp normal respiratory effort and normal air movement GI soft to palpation, non-tender and non-distended no CVA tenderness Extremity normal to inspection Extremity Narrative: trace edema General Extremity: edema bilateral (trace ) Skin Skin Narrative: dressing intact, 2 small areas of drainage-marked and has not increased in size. Psych mental status grossly normal Appearance: grossly normal Weight / BMI Weight Weight: 147 lb 4.301 oz Body Mass Index (BMI) 26.9 ABG / Lab / Microbiology Data 09/26/23 05:25 09/25/23 19:08 D/C Instructions Discharge Diet: No restrictions May resume sexual activity in: 4-6 weeks Weight Bearing Status: Full weight bearing Call your doctor if your incision/area has: Continuous Slow Oozing, Sudden Increased Bleeding, Increased Pain/ Swelling, Increased Redness and Foul Smelling Discharge Call your doctor if you observe: Fever of 101 or Higher and Using more than 1 pad per hour Suture Line Care: Avoid Pulling/Pushing and Avoid Pinching/Bending Cleanse incision/area with: Soap & Water and Keep Dressing Clean & Dry Please Follow Up With: Radha Castro, When: Call [phone] to make an appointment for an incision check in 1-2 weeks. Meaningful Use Info Meaningful Use Diagnoses (Choose all that apply): None applicable Discharge Plan Admission Admit Date/Time: 09/24/23 22:41 Primary Reason for Your Visit: section Attending Provider: Radha Castro Primary Care Provider: Care Physician,No Primary Instructions Patient Instructions: After a Discharge Orders/Prescriptions Prescriptions: No Action PNV cmb#95-ferrous fumarate-FA [] 28 mg iron- 800 mcg tablet 1 tab PO DAILY Referrals / Follow Up: Care Physician,No Primary [Primary Care Provider] - Disposition Disposition (needs filled in before D/C Order can be placed): Home, Self Care
== END 2023-09-27 10:05 | disposition home or self-care (01) | DRG 540 ==
LOC: WPOUT 22:41 → WP 22:41
PROVIDERS: Admitting Provider Obstetrics & Gynecology; Referring Provider Obstetrics & Gynecology; Visit Provider Obstetrics & Gynecology
DX: O24.420 Gestational diabetes mellitus in childbirth, diet controlled (principal); O23.43 Unspecified infection of urinary tract in pregnancy, third trimester; O98.82 Other maternal infectious and parasitic diseases complicating childbirth; B95.1 Streptococcus, group B, as the cause of diseases classified elsewhere; Z37.0 Single live birth; Z3A.38 38 weeks gestation of pregnancy
CPT/HCPCS: 59025; 59050; 80053; 82962; 85025; 85027; 86780; 86850; 86900; 86901; 99221; J7120; A4216; G0378; J2405